=== PATIENT | male | born 1935 | race Caucasian/White ===

== ENCOUNTER 2017-08-09 09:45 | Inpatient (IN) | payer MEDICARE ==
[~2017-08-09 09:45] MED LIST: Bacitracin IV* 50,000 UNITS INJ ONE; Buffered Lidocaine 0.9% SYRIN* 5 ML/SYR SYRINGE INTRADERM ONE; Dexamethasone IV* 4 MG/ML 1 ML (4 MG) IV SLOW PU ONE; Famotidine IV* 10 MG/ML 2 ML (20 mg) IV ONE; Lidocaine 1.5% EPI 1:200,000* 30 ML SDV ONE; Thrombin 5,000 UNITS* 1 APPLIC KIT - topical use - TOPICAL ONE
[2017-08-09] MEDS ORDERED: ceFAZolin 2 GM PREMIX (*) 2 GM/50 ML BAG IVPB ONE (09:58)
[2017-08-09] MEDS ORDERED: Famotidine IV* 10 MG/ML 2 ML (20 mg) ONE (09:58)
[2017-08-09] MEDS ORDERED: Buffered Lidocaine 0.9% SYRIN* 5 ML/SYR SYRINGE ONE (09:58)
[2017-08-09] MEDS ORDERED: Dexamethasone IV* 4 MG/ML 1 ML (4 MG) ONE (09:58)
[2017-08-09] MEDS ORDERED: fentaNYL* 50 MCG/ML 2 ML VIAL (100 MCG VIAL) ONE ×2 (13:31→17:07)
[2017-08-09] MEDS ORDERED: fentaNYL* 50 MCG/ML 2 ML VIAL (100 MCG VIAL) IV PRN (14:23)
[2017-08-09] MEDS ORDERED: Naloxone* 0.4 MG/ML 1 ML VIAL IV PRN (14:23)
[2017-08-09] MEDS ORDERED: Scopolamine 1.5 mg* PATCH TRANSDERM PRN (14:23)
[2017-08-09] MEDS ORDERED: Ondansetron INJ* 2 MG/ML VIAL ONE (14:31)
[2017-08-09] MEDS ORDERED: Lidocaine 2% PF * 5 ML VIAL ONE (14:31)
[2017-08-09] MEDS ORDERED: Ketorolac INJ* 30 MG/ML 1 ML VIAL ONE (14:31)
[2017-08-09] MEDS ORDERED: Propofol* 10 MG/ML 20 ML BTL IV PUSH ONE (14:31)
[2017-08-09] MEDS ORDERED: Succinylcholine* 20 MG/ML 10 ML VIAL ONE (14:31)
[2017-08-09] MEDS ORDERED: EPHEDrine (Pressors)* 50 MG/ML VIAL ONE ×2 (14:31→15:02)
[2017-08-09] MEDS ORDERED: Ondansetron INJ* 2 MG/ML VIAL IV PRN (15:28)
[2017-08-09] MEDS ORDERED: Magnesium Hydroxide LIQ* 30 ML UDC PO PRN (15:28)
[2017-08-09] MEDS ORDERED: HYDROcodone/ACETAMIN 5-325 MG* 1 TAB PO PRN (15:28)
[2017-08-09] MEDS ORDERED: Albuterol HFA INHALER* 8 gm MDI INH PRN (15:30)
--- NOTE | 2017-08-09 16:10 | RAD ---
Indication: Laminectomy L4-L5. Single lateral view of the lumbar spine taken in the operating room. 2 spot images demonstrates localization of the L4-L5 interspace with a metallic probe. IMPRESSION: Localization of the L4-L5 interspace taken in the operating room
[2017-08-09] MEDS: Atorvastatin* 10 MG TAB PO SCH (21:19)
[2017-08-09] MEDS: traZODone TAB* 100 MG PO PRN (21:20)
[2017-08-09] MEDS: Zolpidem TAB* 10 MG PO PRN (21:20)
[2017-08-09] MEDS: PTO: Timolol 0.5% OPTH.SOL* BTL BOTH EYES SCH (21:20)
[2017-08-09] MEDS: PTO: Budesonide/Formote 160/4.5(NF) MDI INH PRN (21:29)
[2017-08-10] MEDS: amLODIPine TAB* 5 MG PO SCH (09:40)
[2017-08-10] MEDS: Metoprolol Tartrate TAB* 25 MG PO SCH (09:40)
[2017-08-10] MEDS: Losartan TAB* 25 MG PO SCH (09:40)
[2017-08-10] MEDS: Sertraline* 100 MG TAB PO SCH (09:40)
[2017-08-10] MEDS: PTO: Budesonide/Formote 160/4.5(NF) MDI INH PRN ×2 (10:43→21:18)
--- NOTE | 2017-08-10 11:46 | PN ---
Progress Note - Progress Note Date of Service: 08/10/17 SOAP: Subjective: [S/p decompressive lumbar laminectomy L4-5, POD#1. Patient feeling well and complains of minimal low back pain. Pre-op symptoms improving. Wants to get up and walk more today. Denies headache and nausea. Eating and drinking without difficulty. Pain well controlled with pain medication.] Objective: [ Vital Signs: Temp Pulse Resp BP Pulse Ox 97.8 F 78 16 131/64 92 08/10/17 07:42 08/10/17 09:38 08/10/17 08:00 08/10/17 07:42 08/10/17 09:38 General: No distress, sitting comfortably in bed. Neuro: Motor and sensory intact. Incision: Intact with zakiya and no swelling. Wound drain in place and functioning well. Wound drain output 08/09/17 08/09/17 08/10/17 00:25 23:07 05:12 Output, SNEHA #1 15 30 20 08/10/17 08:13 Output, SNEHA #1 15 ] Assessment: [Satisfactory post-op course. Wound drain requires further monitoring.] Plan: [1. Continue monitoring wound drain output. 2. Continue pain management. 3. Encourage ambulation.]
[2017-08-10] MEDS ORDERED: Polyethylene Glycol 3350* 17 GM PACKET PO PRN (15:20)
[2017-08-10] MEDS: PTO: Timolol 0.5% OPTH.SOL* BTL BOTH EYES SCH (21:17)
[2017-08-10] MEDS: Zolpidem TAB* 10 MG PO PRN (21:19)
[2017-08-10] MEDS: Atorvastatin* 10 MG TAB PO SCH (21:19)
[2017-08-10] MEDS: traZODone TAB* 100 MG PO PRN (21:19)
[2017-08-11 07:40] VITALS: BP 147/71
[2017-08-11] MEDS: amLODIPine TAB* 5 MG PO SCH (08:01)
[2017-08-11] MEDS: Losartan TAB* 25 MG PO SCH (08:02)
[2017-08-11] MEDS: Sertraline* 100 MG TAB PO SCH (08:03)
[2017-08-11] MEDS: Metoprolol Tartrate TAB* 25 MG PO SCH (08:07)
[2017-08-11] MEDS: PTO: Budesonide/Formote 160/4.5(NF) MDI INH PRN (08:16)
[2017-08-11] MEDS ORDERED: Budesonide/Formote 160/4.5(NF) MDI INH SCH (09:00)
--- NOTE | 2017-08-11 09:04 | PN ---
Progress Note - Progress Note Date of Service: 08/11/17 SOAP: Subjective: [S/p decompressive lumbar laminectomy L4-5, POD #2. Patient feeling well this morning, eager to get up out of bed and ambulate more frequently. Low back incisional pain persistent but controlled with occasional pain medication. Denies headache and nausea. Eating and drinking well. ] Objective: [ Vital Signs: Temp Pulse Resp BP Pulse Ox 98.0 F 70 18 147/71 92 08/11/17 07:27 08/11/17 07:27 08/11/17 07:27 08/11/17 07:27 08/11/17 07:27 General: Alert and oriented. Neuro: Motor and sensory intact. Incision: Intact with zakiya. Mild muscle tightness right side of incision. Drain fell out yesterday. Extremities: Full ROM Wound drain output 08/09/17 08/09/17 08/10/17 00:25 23:07 05:12 Output, SNEHA #1 15 30 20 08/10/17 08/10/17 08/10/17 08:13 11:15 14:00 Output, SNEHA #1 15 18 5 08/10/17 08/11/17 08/11/17 22:00 02:06 05:36 Output, SNEHA #1 0 0 0 ] Assessment: [Satisfactory post-op. Pain well controlled.] Plan: [1. Discharge home today. 2. Discharge instructions discussed with the patient. ]
--- NOTE | 2017-08-12 11:36 | DS ---
DISCHARGE SUMMARY: DATE OF ADMISSION: 08/09/17 DATE OF DISCHARGE: 08/11/17 ATTENDING PHYSICIAN: Dr. Ya * (dictated by EDOUARD Williamson). DISCHARGE DIAGNOSES: 1. Lumbar spinal stenosis, L4-5. 2. Hypertension. 3. Hyperlipidemia. SPECIAL PROCEDURE: Decompressive lumbar laminectomy, L4-5. HOSPITAL COURSE: This 82-year-old male was seen in the office with symptomatic lumbar stenosis consistent with MRI findings of stenosis at L4-5. He complained of low back and lower extremity pain for the previous several years, which contributed to gait difficulty and instability. MRI and CT myelogram of the lumbar spine were obtained and reviewed by Dr. Ya in office. Treatment with decompressive lumbar laminectomy at L4-5 was discussed with the patient and he wished to proceed with this surgery in August. On the day of admission, he was taken to surgery where under general anesthesia, a decompressive lumbar laminectomy at L4-5 operation was carried out. Postoperatively, he was feeling well, although complained of mild low back incisional soreness. He was ambulating with assistance. He was eating, drinking, and voiding without difficulty. He was eager to be discharged home and to be able to get out of bed and ambulate more frequently. On the first postoperative day, the wound drain continued to collect a significant amount of fluid and, therefore, remained in place. On the afternoon of the first postoperative day, the drain began to dysfunction. Overnight, the drain fell out. On the second postoperative day, the patient was discharged home to the care of his family. DISCHARGE INSTRUCTIONS: Including wound care and activity levels were discussed with the patient and information was provided. FOLLOWUP: He will be seen in the office in approximately 10 days for followup and staple removal. DISCHARGE MEDICATION: Melville 5/325 mg 1 to 2 tabs every 4 hours as needed for pain. EDOUARD WILLIAMSON [id number]/[facility] #: [id number] [facility]
--- NOTE | 2017-08-13 03:27 | OP ---
DATE OF OPERATION: 08/09/17 - ROOM #342 DATE OF : 35 SURGEON: Parrish Ya MD ANESTHESIA: General. PRE-OP DIAGNOSIS: Lumbar spinal stenosis, L4-5. POST-OP DIAGNOSIS: Lumbar spinal stenosis, L4-5. OPERATIVE PROCEDURE: Lumbar decompressive laminectomy, L4-5. DESCRIPTION OF PROCEDURE: After satisfactory general anesthesia was obtained, the patient was placed on the operating room table in a prone position with the chest supported on the Lang frame and the back slightly flexed. The lumbar region was then clipped, prepped and draped in a sterile manner for a lumbar laminectomy and the skin incision outlined from L4 to the sacrum. This incision was then infiltrated with 1% Xylocaine with epinephrine after which it was turned down sharply to the level of the lumbar fascia. The fascia was divided along the spinous processes from L4 to the sacrum and the paraspinal musculature stripped away from these posterior elements using the periosteal elevator and monopolar cautery. A bony hypertrophy extending from the midline up to the facet complex made the anatomy quite distorted. Intraoperative x-ray was obtained showing the level of the L4 pedicle. A decompression was then carried out by removing the spinous processes of L4 and L5 and thinning out these posterior elements with a Midas Dmitriy drill. A decompression was then carried out beneath the L5 lamina where a normal tissue plane could be identified. This was carried superiorly by using a combination of Kerrison and the drill. The pathology of this case was a combination of marked ligamentous and joint thickening projecting into the midline with the dura severely compromised. Ultimately, the decompression was carried until the thecal sac had become reestablished. At the conclusion of the decompression, a nerve hook readily with both the L5 nerve roots. The wound was then thoroughly irrigated after which a drain was placed in the epidural space and tunneled out toward the left side. The fascia was then reapproximated with 0 Vicryl suture, the subcutaneous tissue was closed with 3-0 Vicryl suture, and the skin closed with skin clips. The estimated blood less was less than 50 cc and the final sponge, padding, and needle counts were correct. The patient was taken to the recovery room, extubated and in stable condition. [id number]/[facility] #: [id number] [facility]PITALAspen
== END 2017-08-11 10:40 | disposition home or self-care (01) | DRG 517 ==
LOC: OR 09:45 → SSU 17:25 → OBSVTOIN 08-10 09:06
PROVIDERS: ADMIT Neurological Surgery; ATTEND Neurological Surgery
PROC: 01NB0ZZ Release Lumbar Nerve, Open Approach (ICD-10-PCS; principal; 2017-08-10)
DX: M48.062 Spinal stenosis, lumbar region with neurogenic claudication (principal); J44.9 Chronic obstructive pulmonary disease, unspecified; M48.02 Spinal stenosis, cervical region; E78.5 Hyperlipidemia, unspecified; I10 Essential (primary) hypertension; M19.90 Unspecified osteoarthritis, unspecified site; G47.33 Obstructive sleep apnea (adult) (pediatric); N40.0 Benign prostatic hyperplasia without lower urinary tract symptoms; F32.9 Major depressive disorder, single episode, unspecified; Z87.442 Personal history of urinary calculi; Z98.49 Cataract extraction status, unspecified eye; Z72.89 Other problems related to lifestyle; Z87.891 Personal history of nicotine dependence
CPT/HCPCS: 72100; A9270-GY; G0378; J0330; J0690; J1100; J1885; J2405; J2704; J3010

== ENCOUNTER → 2019-05-15 12:34 | Day surgery (SDC) | payer MEDICARE ==
[~2019-05-15 12:34] MED LIST changes: +Acetaminophen TAB* 325 MG PO PRN; -Bacitracin IV* 50,000 UNITS INJ ONE; -Buffered Lidocaine 0.9% SYRIN* 5 ML/SYR SYRINGE INTRADERM ONE; +Buffered Lidocaine 1% SYRIN* 1 ML/SYRINGE INTRADERM ONE; -Dexamethasone IV* 4 MG/ML 1 ML (4 MG) IV SLOW PU ONE; +Dexamethasone IV* 4 MG/ML 1 ML (4 MG) ONE; +DiMENhydriNATE IV* 50 MG/ML VIAL IV PUSH PRN; -Famotidine IV* 10 MG/ML 2 ML (20 mg) IV ONE; +Famotidine IV* 10 MG/ML 2 ML (20 mg) ONE; +HYDROcodone/ACETAMIN 5-325 MG* 1 TAB PO PRN; +Iohexol 180 (CONTRAST) 10 ML SDV IV ONE; +Lactated Ringers 1000 ML Bag* 1,000 ML IV SCH; +Levalbuterol 0.63MG/3ML NEB* UNIT OF USE INH PRN; -Lidocaine 1.5% EPI 1:200,000* 30 ML SDV ONE; +Lidocaine 2% PF * 5 ML VIAL ONE; +Metoprolol Tartrate TAB* 25 MG PO ONE; +Midazolam* 1 MG/ML 2 ML VIAL (2 MG) ONE; +Naloxone* 0.4 MG/ML 1 ML VIAL IV PRN; +Ondansetron INJ* 2 MG/ML VIAL IV PRN; +Propofol* 10 MG/ML 20 ML BTL ONE; -Thrombin 5,000 UNITS* 1 APPLIC KIT - topical use - TOPICAL ONE; +cefTRIAXone(*) 2 GM ADDV.VIAL IVPB ONE; +diPHENhydraMINE IV* 50 MG/ML 1 ml VIAL (BENADRYL) IV PRN; +fentaNYL* 50 MCG/ML 2 ML VIAL (100 MCG VIAL) IV PRN; +fentaNYL* 50 MCG/ML 2 ML VIAL (100 MCG VIAL) ONE
--- NOTE | 2019-05-15 13:06 | HP ---
CC: Dr. Dang Kumar DATE OF ADMISSION: 05/15/2019. HISTORY OF PRESENT ILLNESS: Mr. Selby is an 83-year-old white male who is admitted with left renal colic, obstructing proximal left ureteral calculus for cystoscopy, possible left ureteroscopy, laser lithotripsy and for left ureteral stent insertion. Please refer to the detailed history and physical dated 04/24/[address] Dang Kumar, the patient's primary care physician. This history and physical details his medical history and all his medications. 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 He had been followed in our office for his renal calculi. He was doing well until yesterday night when he started having severe left flank pain. The pain was associated with nausea and vomiting. He did not have any fever or chills. The patient was evaluated in the office and had a renal ultrasound which showed a 7 mm calculus in the proximal left ureter associated with mild hydronephrosis and mild increase in cortical echogenicity. There were also reactive changes around the left kidney consistent with extravasation of urine around the kidney. Full bladder ultrasound showed no jets from the left ureteral orifice. PAST MEDICAL HISTORY AND SYSTEM REVIEW: Detailed in Dr. Kumar's note. The patient has chronic COPD and he is on 24 hour oxygen. He has sleep apnea. He is hypertensive. He is maintained on 150 mg daily, Amlodipine 5 mg daily, Losartan 100 mg daily, Metoprolol 25 mg daily. He has hyperlipidemia on Simvastatin 20 mg daily. He is also on inhalers for his COPD. He is on Trazodone 150 mg daily, Ambien for sleep. He is on one baby aspirin. ALLERGIES: He has no allergies to medications. REVIEW OF SYSTEMS: He denies any chest pain. PHYSICAL EXAMINATION GENERAL: Pleasant, white male who is in moderate pain and who has intranasal oxygen on. VITAL SIGNS: Blood pressure 168/94, pulse 70, temperature 97.7, oxygen saturation 95 percent on 2 liters oxygen. LUNGS: Lungs are clear. HEART: Regular and rhythmic. No murmurs. ABDOMEN: Soft. There is mild left CVA tenderness. Genitalia: uncircumcized, no penile lesions. Normal testes. IMPRESSION: 1. Left renal colic and hydronephrosis secondary to a 7 mm proximal left ureteral calculus. 2. COPD, on 24 h oxygen. 3. Hypertension, on treatment. PLAN: Cystoscopy and left ureteral stent insertion in preparation for definitive treatment of the stone. If the calculus is reachable, then left ureteroscopy and laser lithotripsy will be performed. I discussed the above plans with the patient and his . All their questions were answered. [id number]/[facility] #: [id number] [facility]
[2019-05-15 14:24] LABS: ABS Lymphocytes 0.5 10^3/ul (1.0-4.8); ABS Monocytes 0.6 10^3/ul (0-0.8); ABS Neutrophils 5.1 10^3/ul (1.5-7.7); Eosinophil % 0.3 %; Hematocrit 42 % (42-52); Hemoglobin 14.4 g/dL (14.0-18.0); Lymphocyte % 7.8 %; Mean Corpuscular HGB Conc 35 g/dL (31-36); Mean Corpuscular Hemoglobin 35 pg (27-31); Mean Corpuscular Volume 100 fL (80-94); Mean Platelet Volume 7.9 fL (7.4-10.4); Platelet Count 185 10^3/uL (150-450); Red Blood Count 4.18 10^6 /uL (4.18-5.48); Red Cell Distribution Width 13 % (10-15); White Blood Count 6.2 10^3/uL (3.5-10.8)
[2019-05-15 14:28] LABS: INR 0.98 (0.82-1.09)
[2019-05-15 14:41] LABS: BUN/Creatinine Ratio 16.2 (8-20); Calcium 9.5 mg/dL (8.6-10.3); EGFR African American 76.6 (>60); EGFR Non-African American 63.3 (>60); Potassium 4.1 mmol/L (3.5-5.0)
[2019-05-15 17:41] VITALS: BP 175/86
--- NOTE | 2019-05-15 22:02 | OP ---
CC: Dr. Kumar * DATE OF OPERATION: 05/15/19 - [facility] DATE OF : 35 SURGEON: Donald Cannon MD. ANESTHESIOLOGIST: Dr. Tyrell Henson. ANESTHESIA: General. PRE-OP DIAGNOSES: 1. Proximal left ureteral calculus. 2. Left renal colic due to above. POST-OP DIAGNOSES: 1. Proximal left ureteral calculus. 2. Left renal colic due to above. OPERATIVE PROCEDURE: 1. Cystoscopy. 2. Left ureteroscopy. 3. Left retrograde pyelography and insertion of left ureteral stent (6 Canadian). INDICATIONS FOR PROCEDURE: Mr. Selby is an 83-year-old white male who is a known stone former, who presented to the office today with a 1-day history of recurrent episodes of left flank pain associated with nausea and vomiting, but no fever or chills. Office renal and full bladder ultrasound showed moderate left hydronephrosis, and an obstructing 7-mm calculus in the proximal left ureter and no jets seen out of the left ureteral orifice. Because of the above history and finding, the patient is taken to the operating room on an urgent basis for the above procedure. PATHOLOGY: At cystoscopy, the penile and bulbar urethrae looked normal. The prostatic urethra measured 2.5 cm in length, and there was moderate obstruction by prostate enlargement. Calcifications were noted in the prostatic urethra. Examination of the bladder showed normal ureteral orifices. No suspicious bladder lesions were seen. No calculi or diverticula were noted. At fluoroscopy, no radio-opaque calculus could be seen in the area of the proximal ureter. Upon left ureteroscopy, there was edema in the proximal ureter , which is likely located just distal to the stone. The stone could not be safely reached with the semi-rigid ureteroscope. At the placement of the open-ended catheter over the guidewire, there was resistance in the proximal ureter at the level where the stone was seen on ultrasound. It required some manipulation before successful introduction of the open-ended catheter inside the renal pelvis indicating impaction of the calculus. There was a hydronephrotic drip noted from the kidney. Retrograde pyelography showed moderate hydronephrosis, but no extravasation. DESCRIPTION OF PROCEDURE: After successful general anesthesia, the patient was placed in the lithotomy position and was prepped and draped for cystoscopy. Cystoscopy was performed and the above findings were noted. A flexible tip guidewire was then introduced into the left orifice and positioned in the area of the renal pelvis without difficulty. A 6.5 semi-rigid ureteroscope was then introduced inside the bladder. A flexible tip basket was introduced into the port of the ureteroscope and its flexible tip was introduced inside the left ureteral orifice alongside the guidewire. That allowed the atraumatic introduction of the ureteroscope inside the ureter. The ureteroscope was then advanced all the way to the level of the proximal ureter where the calculus was expected to be found. There was edema at that level that could not be safely negotiated with the ureteroscope. It was decided at this time not to pursue the ureteroscopy. The ureteral mucosa was intact. The ureteroscope was withdrawn. The cystoscope was reintroduced over the guidewire. A size 5 Canadian open-ended catheter was fed on top of the guidewire and as described earlier, there was resistance to the introduction of the open-ended catheter beyond the calculus. After the open-ended catheter was in the area of the renal pelvis, the guidewire was removed. Hydronephrotic drip was noted. Retrograde pyelography was performed. A size 6 Canadian stent was then placed over the guide wire, with the proximal end coiling in the renal pelvis and the distal end coiling inside the bladder. There was good drainage of contrast from the kidney and no extravasation. The patient tolerated the procedure well and left the operating room in good condition. The plan is to obtain a KUB. Decision will be made regarding the definitive treatment of the stone. [id number]/[facility] #: [id number] [facility]
== END | disposition home or self-care (01) ==
LOC: OR 12:34
PROVIDERS: ATTEND Urology
DX: N13.2 Hydronephrosis with renal and ureteral calculous obstruction (principal); Z87.442 Personal history of urinary calculi; J44.9 Chronic obstructive pulmonary disease, unspecified; Z99.81 Dependence on supplemental oxygen; I10 Essential (primary) hypertension; E78.5 Hyperlipidemia, unspecified; E55.9 Vitamin D deficiency, unspecified; F41.8 Other specified anxiety disorders
CPT/HCPCS: 36415; 76000; 80048; 85025; 85610; 93005; C1876; J0696; J1100; J2250; J2704; J3010

== ENCOUNTER → 2019-06-13 08:26 | Day surgery (SDC) | payer MEDICARE ==
--- NOTE | 2019-05-30 07:06 | HP ---
CC: Dr. Taylor * ADMISSION HISTORY AND PHYSICAL: DATE OF ADMISSION: 06/13/19 - [facility] ADMITTING DIAGNOSES: Calculus, left ureter. PLANNED PROCEDURE: Left ureteroscopy, possible laser and stent replacement. SURGEON: Tima Ortiz MD HISTORY OF PRESENT ILLNESS: Parrish Selby is an 83-year-old gentleman who had undergone left ureteroscopy and stent insertion on 05/15/19, but unfortunately 7 mm obstructing calculus in the left ureter. He is now being brought in for ureteroscopy in an effort to plan definitively break up and treat the calculus and left stent replacement. PAST MEDICAL HISTORY: Significant for: 1. COPD. 2. Hypertension. 3. Hyperlipidemia. 4. Depression. MEDICATIONS: On admission: 1. Metoprolol 25 mg a day. 2. Losartan 100 mg a day. 3. Trazodone p.r.n. 4. Simvastatin 20 mg a day. 5. Sertraline 200 mg a day. 6. Symbicort 160/4.5 three to four times a day. 7. Amlodipine 5 mg daily. 8. Aspirin 81 mg a day. 9. Baclofen 10 mg p.r.n. ALLERGIES: No known drug allergies. SMOKING HISTORY: He has a 30-year history of pipe smoking, which he quit in 1986. REVIEW OF SYSTEMS: He denies any chest pain. There is no history of diabetes mellitus or any other major systemic illness. PHYSICAL EXAMINATION GENERAL: Reveals a pleasant, elderly gentleman. VITAL SIGNS: Blood pressure is 160/90, pulse 70 per minute, temperature 98. He is on 2 L of oxygen chronically, oxygen saturation 95%. LUNGS: Clear bilaterally. CARDIOVASCULAR: Regular rate and rhythm. S1, S2. ABDOMEN: Soft with left flank tenderness. IMPRESSION: An 83-year-old gentleman with left stent in place who is being brought in for left ureteroscopy, possible laser and stent replacement. [id number]/[facility] #: [id number] [facility]
[~2019-06-13 08:26] MED LIST changes: +Dexamethasone IV* 4 MG/ML 1 ML (4 MG) IV SLOW PU ONE; +Famotidine IV* 10 MG/ML 2 ML (20 mg) IV ONE; -Levalbuterol 0.63MG/3ML NEB* UNIT OF USE INH PRN; -Metoprolol Tartrate TAB* 25 MG PO ONE; -Midazolam* 1 MG/ML 2 ML VIAL (2 MG) ONE; -Ondansetron INJ* 2 MG/ML VIAL IV PRN; +Ondansetron INJ* 2 MG/ML VIAL ONE; -diPHENhydraMINE IV* 50 MG/ML 1 ml VIAL (BENADRYL) IV PRN; +oxyCODONE TAB* 5 MG TAB PO PRN
[2019-06-13 13:05] VITALS: BP 170/84
--- NOTE | 2019-06-13 21:21 | OP ---
CC: Dr. Dang Taylor * DATE OF OPERATION: 06/13/19 - [facility] DATE OF : 35 SURGEON: Tima Ortiz MD. ANESTHESIOLOGIST: Dr. Roach. ANESTHESIA: General. PRE-OP DIAGNOSES: 1. Left hydronephrosis. 2. Calculus, left proximal ureter. POST-OP DIAGNOSES: 1. Left hydronephrosis. 2. Calculus, left proximal ureter. OPERATIVE PROCEDURES: Cystoscopy, left stent removal, left retrograde pyelogram , left ureteroscopy, laser lithotripsy of left ureteral calculus and removal of calculus fragments, and left stent insertion. COMPLICATIONS: None. STENT USED: An 8-Macedonian stent, left ureter. POSTOPERATIVE CONDITION: Stable. OPERATIVE FINDINGS: Approximately 8 mm calculus, left proximal ureter with mild left hydronephrosis. INDICATIONS: Parrish Selby is an 83-year-old gentleman who had undergone urgent left stent insertion for an obstructing calculus in the left ureter. He is now being brought in for definitive treatment of the calculus. DESCRIPTION OF PROCEDURE: After induction of general anesthesia, the patient was placed in dorsal lithotomy position. Sequential compression devices were in place and functioning. Initial evaluation revealed a normal-appearing urethra. The patient appears to be status post transurethral resection of the prostate with an open prostatic fossa. The bladder was examined and is unremarkable. The previously placed left stent was removed. Retrograde pyelogram revealed mild fullness of the left collecting system. A guidewire was advanced into the proximal left collecting system and a 6-Macedonian semirigid ureteroscope was introduced and advanced under direct vision. In the proximal ureter, a fairly large approximately 8 to 9 mm calculus was noted. Using a 500 micron holmium laser, this was successfully broken up into multiple pieces and all of the sizeable pieces were retrieved. At the end of the procedure, there was no sizeable piece remaining and there was no evidence of any injury to the ureter. An 8-Macedonian stent was introduced and positioned under fluoroscopy with good proximal and distal positioning obtained. The bladder was emptied. The patient tolerated the procedure satisfactorily and was transferred back to the recovery area in stable condition. [id number]/[facility] #: [id number] [facility]
== END | disposition home or self-care (01) ==
LOC: OR 08:26
PROVIDERS: ATTEND Urology
DX: N20.1 Calculus of ureter (principal); N13.30 Unspecified hydronephrosis; I10 Essential (primary) hypertension; J44.9 Chronic obstructive pulmonary disease, unspecified; E78.00 Pure hypercholesterolemia, unspecified; F32.9 Major depressive disorder, single episode, unspecified; Z79.82 Long term (current) use of aspirin; Z87.891 Personal history of nicotine dependence
CPT/HCPCS: 74420; 82365; 88300; C1876; J0696; J1100; J2405; J2704; J3010

== ENCOUNTER 2020-09-03 22:10 | Observation (INO) ==
[2020-09-03 22:46] LABS: ABS Eosinophils 0.2 10^3/ul (0-0.6); ABS Lymphocytes 0.9 10^3/ul (1.0-4.8); ABS Monocytes 0.5 10^3/ul (0-0.8); ABS Neutrophils 3.6 10^3/ul (1.5-7.7); Eosinophil % 3.5 %; Hematocrit 44 % (42-52); Hemoglobin 15.1 g/dL (14.0-18.0); Lymphocyte % 17.9 %; Mean Corpuscular HGB Conc 34 g/dL (31-36); Mean Corpuscular Hemoglobin 35 pg (27-31); Mean Corpuscular Volume 101 fL (80-94); Mean Platelet Volume 8.2 fL (7.4-10.4); Platelet Count 188 10^3/uL (150-450); Red Blood Count 4.38 10^6 /uL (4.18-5.48); Red Cell Distribution Width 13 % (10-15); White Blood Count 5.3 10^3/uL (3.5-10.8)
[2020-09-03 22:56] LABS: ALT 16 U/L (7-52); AST 26 U/L (13-39); Albumin 3.9 g/dL (3.2-5.2); Albumin/Globulin Ratio 1.5 (1-3); Alkaline Phosphatase 63 U/L (34-104); Anion Gap 7 mmol/L (2-11); BUN/Creatinine Ratio 22.1 (8-20); Blood Urea Nitrogen 21 mg/dL (6-24); C Reactive Protein 3.48 mg/L (<8.01); CO2 Carbon Dioxide 34 mmol/L (22-32); Calcium 9.8 mg/dL (8.6-10.3); Chloride 98 mmol/L (101-111); EGFR African American 91.2 (>60); EGFR Non-African American 75.3 (>60); Globulin 2.6 g/dL (2-4); Glucose 128 mg/dL (70-100); Potassium 3.9 mmol/L (3.5-5.0); Sodium 139 mmol/L (135-145); Total Protein 6.5 g/dL (6.4-8.9)
[2020-09-03 23:29] LABS: Alcohol, S < 10 mg/dL (<10)
[2020-09-04 01:25] LABS: Urine Appearance Cloudy; Urine Bilirubin Negative (Negative); Urine Blood Negative (Negative); Urine Color Yellow; Urine Glucose Negative (Negative); Urine Ketones Negative (Negative); Urine Nitrite Negative (Negative); Urine Protein 1+(30 mg/dL) (Negative); Urine Specific Gravity 1.027 (1.010-1.030); Urine Urobilinogen Negative (Negative)
[2020-09-04 01:33] LABS: Urine Bacteria Absent (Absent); Urine Red Blood Cell Trace(0-2/hpf) (Absent); Urine Squamous Epithelial Cell Present (Absent); Urine White Blood Cell 2+(11-20/hpf) (Absent)
[2020-09-04 01:37] LABS: Urine Benzodiazepine Screen None Detected (None Detect); Urine Cannabinoids Screen None Detected (None Detect); Urine Opiates Screen None Detected (None Detect)
[2020-09-04] MEDS ORDERED: methylPREDNISolone 125 mg 2 ML VIAL IV ONE (03:47)
[2020-09-04] MEDS: Piperacillin/Tazobac ADVAN 3.375 GM in NS 0.9% 100 ml BAG 100 ML IVPB ONE ×2 (04:25→07:30)
[2020-09-04 07:13] LABS: Influenza A Molecular Negative (Negative); Influenza B Molecular Negative (Negative)
[2020-09-04] MEDS ORDERED: Enoxaparin 30 MG/0.3 ML SYR SUBCUT SCH (08:00)
[2020-09-04] MEDS ORDERED: Albuterol HFA INHALER 8 gm MDI INH PRN (08:27)
[2020-09-04] MEDS ORDERED: Mometasone/Formoter 200/5 MDI INH SCH (09:00)
[2020-09-04] MEDS ORDERED: SPIRIVA Respimat (tiotropium) 2.5 mcg/inh Inhaler INH SCH (09:00)
[2020-09-04 16:41] VITALS: BP 134/61
[2020-09-04] MEDS ORDERED: Timolol 0.5% OPTH.SOL BTL BOTH EYES SCH (21:00)
== END 2020-09-04 17:35 ==
LOC: MEDTELE 22:10 → ED 22:10 → MEDTELE 09-04 07:48
PROVIDERS: ADMIT Internal Medicine; ATTEND Internal Medicine